=== PATIENT | female | born 1950 | race Caucasian/White ===

== ENCOUNTER 2017-07-03 23:50 | Emergency (ER) | payer MEDICARE ==
[~2017-07-03] VITALS: Ht 162.6 cm; Wt 63.5 kg
[~2017-07-03 23:50] MED LIST: ACEASPCAF; HYDACE5 PO; IBUP800; LISHYD2025 PO; NITR.4SL; OMEP40CA12 PO; PROM25 PO; SUCR1SU PO
[2017-07-03] MEDS ORDERED: HYDCHL25 PO (23:58)
[2017-07-04 00:31] LABS: BASOPHILS ABSOLUTE AUTO 0.04 K/mm3 (0.00-0.23); BASOPHILS PERCENT AUTO 0 % (0-2); EOSINOPHILS ABSOLUTE AUTO 0.06 K/mm3 (0.00-0.68); EOSINOPHILS PERCENT AUTO 1 % (0-6); Hematocrit 45.3 % (33.0-51.0); Hemoglobin 15.8 g/dL (11.5-16.0); IMMATURE GRAN ABSOLUTE AUTO 0.07 K/mm3 (0.00-0.10); IMMATURE GRAN PERCENT AUTO 1 % (0-1); LYMPHOCYTES PERCENT AUTO 20 % (21-46); MONOCYTES ABSOLUTE AUTO 0.63 K/mm3 (0.16-1.47); MONOCYTES PERCENT AUTO 6 % (4-13); Mean Corpuscular HGB 29.7 pg (26.0-34.0); Mean Corpuscular HGB Conc 34.9 g/dL (31.5-36.5); Mean Corpuscular Volume 85 fL (80-100); Mean Platelet Volume 10.5 fL (9.1-12.4); NEUTROPHILS ABSOLUTE AUTO 7.39 K/mm3 (1.96-9.15); NEUTROPHILS PERCENT AUTO 73 % (41-73); Platelet Count 283 K/mm3 (150-400); RDW Coefficient Variation 12.8 % (11.7-14.2); RDW Standard Deviation 39.7 fL (35.1-46.3); Red Blood Cell Count 5.32 M/mm3 (3.80-5.20); White Blood Cell Count 10.19 K/mm3 (4.00-11.30)
[2017-07-04 00:49] LABS: Alanine Aminotransfer (ALT/SGP 18 U/L (12-78); Albumin, Blood 4.3 g/dL (3.4-5.0); Albumin/Globulin Ratio 1.2 (0.8-1.8); Alk Phos 80 U/L (50-136); Anion Gap 13 mmol/L (6-16); Aspartate Aminotrans (AST/SGOT 19 U/L (12-37); Bilirubin, Total 0.7 mg/dL (0.1-1.0); Blood Urea Nitrogen 20 mg/dL (8-24); Bun/Creatinine Ratio 17.9 (12.0-20.0); CO2, Blood 21 mmol/L (21-32); Calcium, Blood 10.2 mg/dL (8.5-10.1); Chloride, Blood 103 mmol/L (98-108); Creatinine, Blood 1.12 mg/dL (0.40-1.00); Globulin, Blood 3.7 g/dL (2.2-4.0); Glomerular Filtration Rate 52 (60-); Glucose, Blood 146 mg/dL (70-99); Potassium, Blood 3.4 mmol/L (3.5-5.5); Sodium, Blood 137 mmol/L (136-145); Troponin I <0.015 ng/mL (0.000-0.040)
[2017-07-04] MEDS ORDERED: Zofran Odt4 MG SL (02:23)
== END 2017-07-04 02:48 | disposition home or self-care (01) ==
LOC: ER 23:50
PROVIDERS: Emergency Medicine
DX: H81.09 Meniere's disease, unspecified ear (principal); Z88.6 Allergy status to analgesic agent; Z79.899 Other long term (current) drug therapy; I25.2 Old myocardial infarction
CPT/HCPCS: 36415; 80053; 83690; 84484; 85025; 93005; 93010; 96374; 99283; J2405

== ENCOUNTER 2018-08-08 14:39 | Observation (INO) | payer MEDICARE ==
[~2018-08-08] VITALS: Ht 162.6 cm; Wt 66.7 kg
[~2018-08-08 14:39] MED LIST changes: +HYDCHL25 PO; +Zofran Odt4 MG SL
[2018-08-08 15:27] LABS: BASOPHILS ABSOLUTE AUTO 0.04 K/mm3 (0.00-0.23); BASOPHILS PERCENT AUTO 0 % (0-2); EOSINOPHILS ABSOLUTE AUTO 0.06 K/mm3 (0.00-0.68); EOSINOPHILS PERCENT AUTO 0 % (0-6); Hematocrit 46.9 % (33.0-51.0); Hemoglobin 15.5 g/dL (11.5-16.0); IMMATURE GRAN ABSOLUTE AUTO 0.08 K/mm3 (0.00-0.10); IMMATURE GRAN PERCENT AUTO 1 % (0-1); LYMPHOCYTES ABSOLUTE AUTO 1.13 K/mm3 (0.84-5.20); LYMPHOCYTES PERCENT AUTO 7 % (21-46); MONOCYTES ABSOLUTE AUTO 0.81 K/mm3 (0.16-1.47); MONOCYTES PERCENT AUTO 5 % (4-13); Mean Corpuscular Volume 88 fL (80-100); Mean Platelet Volume 10.2 fL (9.1-12.4); NEUTROPHILS PERCENT AUTO 86 % (41-73); Platelet Count 288 K/mm3 (150-400); RDW Coefficient Variation 13.1 % (11.7-14.2); RDW Standard Deviation 42.2 fL (35.1-46.3); Red Blood Cell Count 5.34 M/mm3 (3.80-5.20); White Blood Cell Count 15.32 K/mm3 (4.00-11.30)
[2018-08-08] MEDS ORDERED: SUCR1 PO (15:48)
[2018-08-08 15:49] LABS: Alanine Aminotransfer (ALT/SGP 16 U/L (12-78); Albumin, Blood 4.2 g/dL (3.4-5.0); Albumin/Globulin Ratio 1.2 (0.8-1.8); Alk Phos 98 U/L (50-136); Anion Gap 8 mmol/L (6-16); Aspartate Aminotrans (AST/SGOT 15 U/L (12-37); Bilirubin, Total 0.4 mg/dL (0.1-1.0); Blood Urea Nitrogen 15 mg/dL (8-24); Bun/Creatinine Ratio 16.6 (12.0-20.0); CO2, Blood 21 mmol/L (21-32); Calcium, Blood 9.4 mg/dL (8.5-10.1); Chloride, Blood 109 mmol/L (98-108); Globulin, Blood 3.5 g/dL (2.2-4.0); Glomerular Filtration Rate >60 (60-); Glucose, Blood 109 mg/dL (70-99); Potassium, Blood 3.4 mmol/L (3.5-5.5); Sodium, Blood 138 mmol/L (136-145); Total Protein, Blood 7.7 g/dL (6.4-8.2)
[2018-08-08] MEDS ORDERED: ACET250 PO (16:32)
[2018-08-08 16:37] LABS: Source, Urine Clean Catch
[2018-08-08 16:39] LABS: Bilirubin, Urine Neg (Neg); Blood, Urine 2+ (Neg); Glucose Qualitative, Urine Neg (Neg); Ketones, Urine Neg (Neg); Leukocyte Esterase, Urine Neg (Neg); Nitrite, Urine Neg (Neg); Protein, Urine Neg (Neg); Urobilinogen, Urine NORM (Normal)
[2018-08-08 16:45] LABS: Appearance, Urine Clear (Clear); Color, Urine Yellow (P-Yellow)
[2018-08-08 16:46] LABS: Squamous Epithelial Cells Few /hpf (Few); White Blood Cells, Urine 0-2 /hpf (0-5)
[2018-08-08 16:47] LABS: Bacteria Rare /hpf
--- NOTE | 2018-08-09 08:28 | NUR ---
RESTING IN BED, REPORTS H/A AND ABD PAIN IS "BETTER" DENIES ANY NAUSEA, NPO FOR SURGERY TODAY, DENIES ANY OTHER DISCOMFORT.
--- NOTE | 2018-08-09 08:46 | NUR ---
SUMMARY PAIN AND NAUSEA MEDICATED PRN. PT IS A&OX4, INDEPENDENT IN THE ROOM. VOIDING WNL. NPO SINCE MIDNIGHT. PAIN MEDICATION CHANGED THIS AM DUE TO POSSIBLE REBOUND HEADACHE. REPORT GIVEN TO ONCOMING RN. CALL LIGHT IN REACH
--- NOTE | 2018-08-09 15:00 | NUR ---
PT TAKEN TO OR.
--- NOTE | 2018-08-09 15:59 | NUR ---
08/09/18 1559 Tyron Lawrence PATIENT ON SCHEDULED ANTIBIOTICS
--- NOTE | 2018-08-09 17:15 | NUR ---
POST-OP S/P OREN MCGOVERN, PT ARRIVED TO ROOM A&O X3, DENIES ANY PAIN, NAUSEA, OR ANY DISCOMFORT AT THIS TIME, REPORTS FEELING "MUCH BETTER" TRANSFERRED SELF TO BED, CLEAR LIQUIDS OFFERED, ENCOURAGED TO COUGH AND DEEP BREATHE, IS GIVEN, CONT. TO MONITOR VS AND ANY CHANGES, MEDICATE FOR PAIN PRN.
[2018-08-09] MEDS ORDERED: OXYC5 PO (18:55)
--- NOTE | 2018-08-09 20:28 | NUR ---
DISCHARGE SUMMARY: PT D/C TO HOME. PT JESSA REG PO, NO C/O NAUSEA. PT REP MILD DISCOMFORT W/FIRST GETTING UP OOB, REP PAIN JESSA, DENIES NEED FOR PAIN MEDS. DRESSINGS CDI. PT VOIDING URINE W/O DIFFICULTY. DISCHARGE INSTRUCTIONS REV W/PT AND , ALL QUESTIONS ANSWERED. REP HAVING PICKED UP PAIN MED SCRIPT FROM PHARMACY. PT AMB INDEP W/ AT SIDE, NO DISTRES NOTED. PT TO F/U W/SURGEON PER ORDERS.
== END 2018-08-09 20:15 | disposition home or self-care (01) ==
LOC: ER 14:39 → SURS 14:40 → ER 16:24 → SURS 16:24 → ER 08-09 14:40 → SURS 08-09 14:40
PROVIDERS: Physician Assistant; ADMIT Surgery
PROC: 0FT40ZZ Resection of Gallbladder, Open Approach (ICD-10-PCS; principal; 2018-08-09 13:15)
DX: K80.13 Calculus of gallbladder with acute and chronic cholecystitis with obstruction (principal); Z87.11 Personal history of peptic ulcer disease; Z79.899 Other long term (current) drug therapy
CPT/HCPCS: 36415; 76705; 80053; 81001; 82272; 83690; 85025; 88304; 93005; 93010; 96361; 96365; 96375; 96376; 99285-25; C9113; J1100; J1170; J1885; J2250; J2405; J2543; J2704; J2710; J3010; J7030; J7120